=== PATIENT | male | born 1965 | race Caucasian/White ===

== ENCOUNTER 2024-09-27 09:58 | Outpatient (CLI) | payer BC, SELFPAY | END 2024-09-27 09:59 | disposition home or self-care (01) | PROVIDERS: PCP Family Medicine; Visit Provider Family Medicine | DX: R73.9 Hyperglycemia, unspecified (principal); I10 Essential (primary) hypertension; E11.9 Type 2 diabetes mellitus without complications; Z12.5 Encounter for screening for malignant neoplasm of prostate | CPT/HCPCS: 82043; 82570; G0103 ==

== ENCOUNTER 2024-10-26 07:30 | Outpatient (CLI) | payer OTHER, SELFPAY | END 2024-10-26 07:31 | disposition home or self-care (01) | LOC: NFLDREF 10-29 01:50 | PROVIDERS: PCP Family Medicine; Referring Provider Family Medicine; Visit Provider Family Medicine | DX: I10 Essential (primary) hypertension (principal); R73.9 Hyperglycemia, unspecified | CPT/HCPCS: 80053; 80061 ==

== ENCOUNTER 2025-02-11 07:57 | Outpatient (CLI) | payer OTHER, SELFPAY | END 2025-02-11 07:58 | disposition home or self-care (01) | PROVIDERS: PCP Family Medicine; Referring Provider Family Medicine; Visit Provider Family Medicine | DX: E78.1 Pure hyperglyceridemia (principal); R74.8 Abnormal levels of other serum enzymes | CPT/HCPCS: 80061; 80076 ==